=== PATIENT | female | born 1940 | race Caucasian/White ===

== ENCOUNTER 2020-09-23 12:54 | Emergency (ER) | payer OTHER ==
[~2020-09-23 12:54] MED LIST: KLONOPIN0.5 MG PO; PERCOCET 5-3251 EACH PO
[2020-09-23 14:29] LABS: HEMOGLOBIN 12.1 gm/dl (12.3-15.3); RED BLOOD COUNT 4.08 M/UL (4.00-5.10); WHITE BLOOD COUNT 5.9 K/UL (4.5-11.0)
[2020-09-23 15:16] LABS: BUN/CREATININE RATIO 10 (0-10)
[2020-09-23] MEDS ORDERED: MIRALAX17 GM PO (16:28)
[2020-09-23] MEDS ORDERED: HYDROCODON-ACE1 EAC4 PO (16:30)
== END 2020-09-23 16:54 | disposition home or self-care (01) ==
LOC: ER1 12:54
PROVIDERS: Emergency Medicine
DX: K59.00 Constipation, unspecified (principal); M54.9 Dorsalgia, unspecified; Z88.0 Allergy status to penicillin; Z88.5 Allergy status to narcotic agent; Z88.1 Allergy status to other antibiotic agents; Z88.8 Allergy status to other drugs, medicaments and biological substances; Z91.040 Latex allergy status
CPT/HCPCS: 71045; 72131; 80053; 81001; 82550; 82553; 83605; 83690; 84484; 85025; 85652; 86140; 99284

== ENCOUNTER 2021-04-29 14:14 | Emergency (ER) | payer OTHER ==
[~2021-04-29 14:14] MED LIST changes: +HYDROCODON-ACE1 EAC4 PO; +MIRALAX17 GM PO
[2021-04-29 15:53] LABS: HEMOGLOBIN 12.4 gm/dl (12.3-15.3); RED BLOOD COUNT 4.29 M/UL (4.00-5.10); WHITE BLOOD COUNT 7.7 K/UL (4.5-11.0)
[2021-04-29 16:15] LABS: BUN/CREATININE RATIO 23 (0-10)
[2021-04-29] MEDS ORDERED: CEFUROXIME500 MG PO (22:08)
== END 2021-05-01 14:45 | disposition home or self-care (01) ==
LOC: ER1 14:14
PROVIDERS: Physician Assistant
DX: E86.0 Dehydration (principal); N39.0 Urinary tract infection, site not specified; I25.10 Atherosclerotic heart disease of native coronary artery without angina pectoris; E11.9 Type 2 diabetes mellitus without complications; I10 Essential (primary) hypertension; F17.200 Nicotine dependence, unspecified, uncomplicated
CPT/HCPCS: 71045; 80053; 81001; 82550; 82553; 83690; 83874; 84484; 85025; 93005; 99285; J0696